=== PATIENT | male | born 1950 | race African-American/Black ===

== ENCOUNTER 2017-10-22 15:12 | Inpatient (IN) | payer MEDICARE ==
[~2017-10-22 15:12] MED LIST: ISOVUE-370 76%-LOCM 1 ML ONE
[2017-10-22 16:30] LABS: Bilirubin Negative (Negative); Blood, Urine Negative (Negative); Clarity CLEAR (Clear); Glucose, Urine (Dipstick) Negative (Negative); Leukocyte Negative (Negative); Nitrite Negative (Negative); Protein, Urine (Dipstick) Negative (Neg-Trace); Specific Gravity, Urine 1.008 (1.002-1.036); Urobilinogen 0.2 mg/dL (0.2-1.0); pH, Urine 7.5 (5.0-9.0)
[2017-10-22] MEDS ORDERED: Morphine 4 MG/ML VIAL ONE (16:34)
--- NOTE | 2017-10-22 17:20 | CT ---
CTA CHEST WITH CONTRAST: HISTORY: Intermittent chest pain for a month. Near syncope for a week and diaphoresis. COMPARISON: None. TECHNIQUE: Multiple contiguous axial images were obtained in a CTA chest with contrast per pulmonary embolism pr otocol, and 3D oblique MIP reformats and direct coronal reformats were performed. FINDINGS: The pulmonary arteries are well opacified without filling defects to suggest pulmonary emboli. The h eart is normal in size. There is hypertrophy of the left ventricular wall. No hilar or mediastinal lymphadenopathy is seen. No pneumothorax or pleural effusion is seen. Scarring is seen in the left apex. There are calcified granulomas in the left upper lobe. No suspicious pulmonary nodules or infiltrates are seen. The visualized subdiaphragmatic structures are unremarkable. Mild degenerative changes are seen in t he spine. The chest wall soft tissues are unremarkable. IMPRESSION: 1. No evidence of pulmonary thromboembolism. 2. Left apical scarring. POS: LORIH
[2017-10-22 18:02] LABS: Troponin I 0.013 ng/mL (< 0.028)
[2017-10-22 18:29] LABS: Amphetamine Not Detected (NotDetected); Barbiturates Screen Not Detected (NotDetected); Benzodiazepine Screen Not Detected (NotDetected); Cocaine Metabolite Screen Not Detected (NotDetected); Medtox Control Line Valid? VALID (VALID); Medtox Reader # READER 1; Methadone Not Detected (NotDetected); Methamphetamine Not Detected (NotDetected); Opiate Screen Not Detected (NotDetected); Oxycodone Screen Not Detected (NotDetected); Phencyclidine (PCP) Not Detected (NotDetected); THC/Cannabinoid Screen Not Detected (NotDetected); Tricyclic Screen Not Detected (NotDetected)
[2017-10-22] MEDS ORDERED: Guaifenesin DM 100-10/5 ML UDCUP PO PRN (19:52)
[2017-10-22] MEDS ORDERED: Nitroglycerin 0.4 MG TAB (25 Tab Bottle) PO PRN (19:52)
[2017-10-22] MEDS ORDERED: Acetaminophen 325 MG TAB PO PRN (19:52)
[2017-10-22 20:46] LABS: Hemoglobin A1c 5.3 % (4.0-6.0)
[2017-10-22 21:06] LABS: Troponin I Less than 0.010 ng/mL (< 0.028)
[2017-10-22] MEDS ORDERED: Ondansetron ODT 4 MG TAB SL PRN (21:29)
[2017-10-22] MEDS ORDERED: Ondansetron HCl/PF 4 MG/2 ML Vial IVP PRN (21:29)
[2017-10-22] MEDS: Famotidine 20 MG TAB PO SCH (21:53)
[2017-10-22] MEDS: Carvedilol 3.125 MG TAB PO SCH (21:53)
[2017-10-22 22:03] VITALS: BMI 22.4
--- NOTE | 2017-10-23 01:16 | HP ---
REASON FOR ADMISSION: Chest pain. HISTORY OF PRESENTING ILLNESS: The patient gives history of off and on chest pain from last 1 week. This is retrosternal in position. The pain is 6/10 in intensity when it comes on. Most of the time, it is 15-20 minutes. Sometimes it lasted more than an hour. Most of these episodes have come on when he is quietly sitting in a chair. The patient states he has had CABG done for 3- vessel disease in [address] [facility]. He moved from [facility] to [place] three weeks back. The patient also complains of cough with expectoration of greenish sputum. No fever or wheezing. He admits to smoking. PAST MEDICAL AND SURGICAL HISTORY: History of coronary artery disease, CABG x3 vessels done in [address] [facility], COPD, dyslipidemia, back surgery x2. CURRENT MEDICATIONS: Please note patient does not recall most of his medications, but he goes to the [facility] in [place]. The number for pharmacy is [phone]. He knows he is on aspirin 81 mg daily and albuterol inhaler, but does not recall all the other medications that he is on. We will try to obtain from the pharmacy. ALLERGIES: TRAMADOL causes rash. PERSONAL HISTORY: Smokes 1 pack per day and has been doing so for the last 30 years. Drinks on social occasions. Does not abuse drugs. Lives with his [id number]. FAMILY HISTORY: Mother when he was 9 years old and does not know the exact cause of her . Father of massive [place] in his 50s. CODE STATUS: FULL. Power of sports attorney is his niece, Ms. Desiree Nguyen. Patient has 4 kids and does not want him to be POA. REVIEW OF SYSTEMS: The following complete review of systems was negative, unless otherwise mentioned in the HPI or below: Constitutional: Weight loss or gain, ability to conduct usual activities. Skin: Rash, itching. Eyes: Double vision, pain. ENT/Mouth: Nose bleeding, neck stiffness, pain, tenderness. Cardiovascular: Palpitations, dyspnea on exertion, orthopnea. Respiratory: Shortness of breath, wheezing, cough, hemoptysis, fever or night sweats. Gastrointestinal: Poor appetite, abdominal pain, heartburn, nausea, vomiting, constipation, or diarrhea. Genitourinary: Urgency, frequency, dysuria, nocturia. Musculoskeletal: Pain, swelling. Neurologic/Psychiatric: Anxiety, depression. Allergy/Immunologic: Skin rash, bleeding tendency. PHYSICAL EXAMINATION: GENERAL: The patient is a 66-year-old male who is currently not in any acute distress. VITAL SIGNS: Blood pressure 156/84, pulse 90 per minute, respiratory rate 18 per minute, temperature 98.3 degrees Fahrenheit and saturating 99% on room air. NECK: Supple, no elevated JVD. EYES: Extraocular muscles intact. Pupils reacting to light. ORAL CAVITY: Mucous membranes are moist. No exudates or congestion. CARDIOVASCULAR SYSTEM: S1, S2 heard. Regular rhythm. RESPIRATORY SYSTEM: Air entry 1+ bilateral. Scattered rhonchi plus. ABDOMEN: Soft, bowel sounds heard. No tenderness, rigidity or guarding. EXTREMITIES: No peripheral edema or calf tenderness. VASCULAR SYSTEM: Peripheral pulses 2+ bilateral, no ischemic ulcerations or gangrene. CENTRAL NERVOUS SYSTEM: No gross focal deficits noted. Patient is alert, awake , oriented well. PSYCHIATRIC SYSTEM: Patient's mood is euthymic. No hallucinations or delusions. IMAGING DATA AND LABORATORY DATA: EKG x2 done at 12:32 p.m. and 15:[address]-T wave changes in V2, V3, which has remained unchanged. There is poor R-wave progression. White count of 5, hemoglobin and hematocrit 14 and 47 , platelet count 274, MCV is 94 with 67% neutrophils. Electrolytes are stable. BUN 5, creatinine 0.8, serum glucose is 160, lactic acid 4.0, repeat one is 1.9. Troponin x2 is negative. CK-MB 1.1, CK levels 121, albumin is 3.9. Urine drug screen is negative. CT angio chest done shows no evidence of PE. There is chronic scarring seen in the left apical area. CLINICAL IMPRESSION AND PLAN: The patient will be under observation on telemetry for chest pain off and on for the last 1 week with history of coronary artery disease and prior CABG. We will obtain one more set of cardiac enzymes and a nuclear stress test. He has cough with expectoration of green phlegm and has underlying COPD. 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 We will place him on Levaquin, DuoNeb q.6 hourly. We will also obtain hemoglobin A1c in view of serum sugar being 160. The patient has no history of diabetes in the past. He will be kept n.p.o. for stress test in the morning. JEAN
[2017-10-23 05:35] LABS: #Eosinphils 0.1 thou/uL (0.0-0.7); #Lymphocytes 1.4 thou/uL (1.20-3.40); #Monocytes 0.6 thou/uL (0.11-0.59); #Neutrophils 2.2 thou/uL (1.40-6.50); %Basophils 0.8 % (0.0-1.0); %Eosinophils 2.4 % (0.0-10.0); %Lymphocytes 31.9 % (21.0-51.0); %Monocytes 14.3 % (0.0-10.0); %Neutrophils 50.6 % (42.0-75.0); Hemoglobin 12.1 g/dL (14.0-18.0); Mean Corpuscular HGB CONC 33.7 g/dL (32.0-36.0); Mean Corpuscular Hemoglobin 32.2 pg (27.0-31.0); Mean Corpuscular Volume 95.6 fL (78.0-98.0); Mean Platelet Volume 9.6 fL (7.4-10.4); Platelet Count 252 thou/uL (130-400); RBC Distribution Width 12.4 % (11.5-14.5); Red Blood Cell (RBC) Count 3.75 mill/uL (4.70-6.10); White Blood Cell (WBC) Count 4.3 thou/uL (4.8-10.8)
[2017-10-23 05:39] LABS: Anion Gap 10 mmol/L (10-20); BUN (Urea Nitrogen) 4 mg/dL (8.4-25.7); Calc. Creatinine Clearance 117 mL/min (70-130); Calcium 8.6 mg/dL (7.8-10.44); Carbon Dioxide 25 mmol/L (23-31); Cardiac Risk 2.9 (Less than 4.5); Chloride 107 mmol/L (98-107); Cholesterol 114 mg/dl (< 200 Desired); Estimated GFR-MDRD Greater than 90; Glucose 91 mg/dL (80-115); HDL Cholesterol 39 mg/dL (>60 Neg Risk); LDL Cholesterol, Calculated 63 mg/dL; Potassium 3.4 mmol/L (3.5-5.1); Sodium 139 mmol/L (136-145); Triglycerides 61 mg/dL (Less than 150)
[2017-10-23] MEDS: Carvedilol 3.125 MG TAB PO SCH ×3 (09:36→20:05)
--- NOTE | 2017-10-23 13:25 | NM ---
RADIONUCLIDE STRESS AND REST MYOCARDIAL PERFUSION SCAN WITH CT ATTENUATION CORRECTION AND SPECT IMAGI NG WITH LEFT VENTRICULAR WALL MOTION EVALUATION AND EJECTION FRACTION: HISTORY: Chest pain. FINDINGS: Lexiscan protocol. Homogeneous uptake is present throughout the left ventricular myocardium on the stress and rest image s. No focal perfusion defect or reversibility. QGS analysis of gated SPECT images shows no focal wall motion abnormalities. Left ventricular ejectio n fraction is calculated at 53%. IMPRESSION: 1. Normal myocardial perfusion scan showing no reliable evidence of ischemia. 2. Borderline ejection fraction of 53%. No focal wall motion abnormalities are apparent. POS: LORI
[2017-10-23] MEDS: Aspirin 325 MG TAB PO SCH (14:10)
[2017-10-23] MEDS: Famotidine 20 MG TAB PO SCH ×2 (14:10→20:05)
[2017-10-23] MEDS: Enoxaparin Sodium 40 MG/0.4 ML SYRINGE SC SCH (14:10)
--- NOTE | 2017-10-23 14:46 | PDOC.PN ---
- Subjective Encounter Start Date: 10/23/17 Encounter Start Time: 10:00 Subjective: no chest pain or sob - Objective Resuscitation Status: Resuscitation Status FULL:Full Resuscitation MAR Reviewed: Yes Vital Signs & Weight: Vital Signs (12 hours) Temp Pulse Resp BP Pulse Ox 10/23/17 12:44 98.3 F 82 18 120/74 100 10/23/17 12:39 70 12 10/23/17 08:05 98.3 F 82 18 97 10/23/17 07:40 97.9 F 66 18 128/71 97 10/23/17 04:00 98.2 F 64 12 124/69 96 Weight Weight 169 lb 12.095 oz I&O: 10/22/17 10/23/17 10/24/17 06:59 06:59 06:59 Output Total 1000 Balance -1000 Result Diagrams: 10/23/17 04:44 10/23/17 04:44 Phys Exam - Physical Examination HEENT: PERRLA, moist MMs Neck: no JVD, supple Respiratory: no wheezing, no rales rhonchi+ Cardiovascular: RRR, no significant murmur Gastrointestinal: soft, non-tender, positive bowel sounds Musculoskeletal: no edema, pulses present Neurological: non-focal, moves all 4 limbs Psychiatric: normal affect, A&O x 3 Dx/Plan (1) Chest pain Code(s): R07.9 - CHEST PAIN, UNSPECIFIED Status: Acute Qualifiers: Chest pain type: unspecified Qualified Code(s): R07.9 - Chest pain, unspecified (2) COPD (chronic obstructive pulmonary disease) Status: Chronic Qualifiers: COPD type: COPD with acute exacerbation Qualified Code(s): J44.1 - Chronic obstructive pulmonary disease with (acute) exacerbation (3) HTN (hypertension) Code(s): I10 - ESSENTIAL (PRIMARY) HYPERTENSION Status: Chronic Qualifiers: Hypertension type: essential hypertension Qualified Code(s): I10 - Essential (primary) hypertension (4) CAD (coronary artery disease) Code(s): I25.10 - ATHSCL HEART DISEASE OF [place] CORONARY ARTERY W/O ANG PCTRS Status: Chronic Qualifiers: Coronary Disease-Associated Artery/Lesion type: bypass graft [place] vs. transplanted heart: [place] heart Associated angina: without angina Qualified Code(s): I25.810 - Atherosclerosis of coronary artery bypass graft(s) without angina pectoris (5) Dyslipidemia Code(s): E78.5 - HYPERLIPIDEMIA, UNSPECIFIED Status: Chronic - Plan hemostable -: stress test is -ve for reversible ischemia -: dc home -: to continue all his home meds as before * . Review of Systems - Medications/Allergies Allergies/Adverse Reactions: Allergies Allergy/AdvReac Type Severity Reaction Status Date / Time tramadol Allergy Verified 10/22/17 22:23 Medications: Current Medications Acetaminophen (Tylenol) 650 mg PO Q4H PRN PRN Reason: Headache/Fever or Pain Albuterol/Ipratropium (Duoneb) 3 ml NEB [id number] [facility] Last Admin: 10/23/17 12:39 Dose: 3 ml Aspirin (Aspirin) 325 mg PO DAILY [facility] Last Admin: 10/23/17 14:10 Dose: 325 mg Carvedilol (Coreg) 3.125 mg PO BID [facility] Last Admin: 10/23/17 09:36 Dose: Not Given Enoxaparin Sodium (Lovenox) 40 mg SC 0900 [facility] Last Admin: 10/23/17 14:10 Dose: 40 mg Famotidine (Pepcid) 20 mg PO BID [facility] Last Admin: 10/23/17 14:10 Dose: 20 mg Guaifenesin/Dextromethorphan (Robitussin Dm) 15 ml PO Q4H PRN PRN Reason: Cough Levofloxacin (Levaquin) 500 mg PO DAILY [facility] Last Admin: 10/23/17 14:11 Dose: 500 mg Nitroglycerin (Nitrostat) 0.4 mg PO Q5MIN PRN PRN Reason: Chest Pain Sodium Chloride (Flush - Normal Saline) 10 ml IVF PRN PRN PRN Reason: Saline Flush
[2017-10-23] MEDS ORDERED: Regadenoson 0.4 MG/5 ML SYRINGE ONE (15:20)
[2017-10-24] MEDS: Enoxaparin Sodium 40 MG/0.4 ML SYRINGE SC SCH (09:01)
[2017-10-24] MEDS: Aspirin 325 MG TAB PO SCH (09:02)
[2017-10-24] MEDS: Famotidine 20 MG TAB PO SCH (09:02)
[2017-10-24] MEDS: Carvedilol 3.125 MG TAB PO SCH (09:02)
[2017-10-24 09:59] VITALS: BP 119/86; TEMP 97.6
--- NOTE | 2017-10-24 13:33 | STRESS ---
Acquisition Time: 2017-10-23 11:00:11 Total Exercise Time: 00:01:00 Test Indications: CHEST PAIN Medications: Protocol: LEXISCAN Max HR: 125 BPM 81% of Pred: 153 BPM Max BP: 152/078 mmHG Max Work Load: 1.0 METS THE PATIENT WAS INJECTED WITH LEXISCAN. HE DID DEVELOP CHEST PAIN. THERE WAS NO SIGNIFICANT ST DEPRESSION. AWAIT NUCLEAR IMAGES FOR DEFINITIVE DIAGNOSIS. Confirmed by MANJEET DUMONT ([id number]), book or script editor JOHN MENDES ([id number]) on 10/24/2017 1:32:47 PM Referred By: MD Delphine GOULD Confirmed By:MANJEET DUMONT
--- NOTE | 2017-10-25 01:35 | DIS ---
DATE OF ADMISSION: 10/22/2017 DATE OF DISCHARGE: 10/24/2017 DISCHARGE DISPOSITION: To home. PRIMARY DISCHARGE DIAGNOSES: Chest pain, which is noncardiac, mild chronic obstructive pulmonary disease exacerbation. SECONDARY DISCHARGE DIAGNOSES: Hypertension, coronary artery disease, dyslipidemia. PROCEDURES DONE DURING HOSPITALIZATION: CT angio chest done on the day of admission showed no acute PE. There is chronic left apical scarring. Nuclear stress test done showed ejection fraction of 53%. No focal wall motion abnormalities were seen. Normal myocardial perfusion scan with no reliable evidence of ischemia was noted. H&H 12 and 35, platelet count 252. Troponin x2 negative. Total cholesterol 114, triglyceride 61, LDL 63, HDL 39. Hemoglobin A1c 5.3. Urine drug screen was negative. DISCHARGE MEDICATIONS: Aspirin 81 mg p.o. daily, atorvastatin 80 mg p.o. daily , Lopressor 25 mg twice daily, Levaquin 500 mg p.o. daily for 4 days, albuterol inhaler q.6 hourly p.r.n., Symbicort inhaler 160/4.5 mcg 2 puffs twice daily. ALLERGIES: TRAMADOL. DISCHARGE PLAN: Patient to follow up with primary care physician in 1 week. BRIEF COURSE DURING HOSPITALIZATION: Patient initially got admitted with complaints of chest pain, which was in the retrosternal area. Patient has had prior history of CABG and he was essentially placed under observation to rule out ACS. His CABG was in 2010. Nuclear stress test done showed no reversible ischemia. Three sets of troponin were negative. Patient had clinical findings of COPD, mild exacerbation and was placed on DuoNebs and has responded well. He has been advised to continue all his home medications as before. Levaquin for 4 days for COPD flare-up and Symbicort inhaler were added to his current home medication regimen. He needs to follow up with his primary care physician in 1 week. Please see a [id number] [facility]. Please note patient stayed overnight as he did not have family/ friends to pick him up and is being discharged home on 10/25/2017 in stable condition. JEAN
== END 2017-10-24 10:15 | disposition home or self-care (01) | DRG 313 ==
LOC: ERS 15:12 → 2NO 17:27
PROVIDERS: ADMIT Internal Medicine; ATTEND Internal Medicine
DX: R07.89 Other chest pain (principal); J44.1 Chronic obstructive pulmonary disease with (acute) exacerbation; I25.10 Atherosclerotic heart disease of native coronary artery without angina pectoris; Z95.1 Presence of aortocoronary bypass graft; F17.210 Nicotine dependence, cigarettes, uncomplicated; E78.5 Hyperlipidemia, unspecified; Z79.82 Long term (current) use of aspirin; Z79.51 Long term (current) use of inhaled steroids; Z88.5 Allergy status to narcotic agent; Z86.11 Personal history of tuberculosis
CPT/HCPCS: 36415; 71275; 78452; 80048; 80061; 80306; 81003; 83036; 83605; 85025; 87070; 87205; 93005; 93017; 93306; 94640; 94760; 96361; 96374; A9500; J1650; J2270; J2785; J7620